=== PATIENT | male | born 1975 | race African-American/Black ===

== ENCOUNTER 2025-08-23 04:06 | Emergency (ER) | payer OTHER, SELFPAY ==
--- NOTE | ~2025-08-23 | US_ITS ---
CLINICAL HISTORY: Left Testicular Pain; Acute onset US Scrotum with Doppler Comparison: None provided Findings: Right testicle normal echotexture, 4.8 x 3.2 x 1.9 cm. Left testicle normal echotexture, 4.6 x 3.0 x 2.6 cm. Normal color flow and arterial/venous spectral tracing of both testicles. Normal epididymides. No varicoceles. No hydroceles. IMPRESSION: Normal scrotal ultrasound. No evidence of torsion. This document has been electronically signed by: Hilton Blank MD on 08/23/2025 06:41:29
--- NOTE | ~2025-08-23 | CT_ITS ---
CLINICAL HISTORY: renal infarct or blockage, left flank pain CT angiography abdomen and pelvis with contrast. 3-D post processing. Comparison: None provided Findings: Aorta, mesenteric/renal arteries, and iliofemoral systems are patent with no hemodynamically significant stenoses. The lung bases are clear. There is loss of corticomedullary distinction in the upper pole of the left kidney, possible pyelonephritis. The gallbladder and solid organs are otherwise within normal limits. No renal stones. No bowel obstruction, pneumoperitoneum, or pneumatosis. Pelvic contents unremarkable. Normal appendix. The bones are intact. IMPRESSION: Possible left pyelonephritis. Clinical follow-up recommended. This document has been electronically signed by: Hilton Blank MD on 08/23/2025 07:34:24
[2025-08-23 04:09] VITALS: BP 173/85; PULSE 80; RESP 20; TEMP 36.7; O2SAT 96; BMI 25.5
[2025-08-23 04:29] LABS: Hematocrit 42.1 % (42.0-52.0); Hemoglobin 14.2 g/dl (14.0-18.0); Imm Gran Abs Auto 0.03 X10*3/uL (0.00-0.03); Imm Gran Pct Auto 0.3 % (0.0-0.4); Lymphocytes Absolute Auto 1.2 X10*3/uL (1.2-4.9); MANUAL DIFF FLAG NO; Mean Corpuscular HGB Conc 33.7 g/dl (31.0-36.0); Mean Corpuscular Hemoglobin 27.4 pg (27.0-33.0); Mean Corpuscular Volume 81.3 fL (80.0-98.0); NRBC Abs Auto 0.000 X10*3/uL (0.0-0.012); NRBC Pct Auto 0.0 /100WBC (0.0-0.2); Platelet Count 242 X10*3/uL (160-400); Red Blood Count 5.18 X10*6/uL (4.60-5.80); White Blood Count 11.1 X10*3/uL (4.8-10.8)
--- NOTE | 2025-08-23 04:34 | PC.NURSE ---
pt reports waking up to severe testicular pain on L. He reports some nausea and vomiting once, last emesis an hour ago. spouse at bedside. denies fever. 02/23 pain.
--- OUTSIDE RECORDS SUMMARY | 2025-08-23 04:40 | XMS_ITS | Encounter Summary ---
Author Organization [facility], Address [address] [place] [address] Phone Care Team Providers Care Cardiovascular Surgical Tech Name Role Phone Jamie Granger MD Primary Care Provider [phone] Encounter Details Date Type Department Care Team (Late st Contact Info) Description 09/18/2023 Documentation Only [facility], [address] [place] [address] Brenton Holt MD [address] [place] [address] Social History Tobacco Use Types Packs/Day Years Used Date Smoking Tobacco: Never Assessed Sex and Gender Information Value Date Recorded Sex Assigned at Not on file Legal Sex Male 3:30 PM EST Gender Identity Not on file Sexual Orientation Not on file documented as of this encounter Plan of Treatment Not on file documented as of this encounter Visit Diagnoses Not on filedocumented in this encounter Care Teams Cardiovascular Surgical Tech Relationship Specialty Start Date End Date Jamie Granger MD PCP - General Physician Door Attendant 09/18/23 documented as of this encounter
--- OUTSIDE RECORDS SUMMARY | 2025-08-23 04:40 | XMS_ITS | Encounter Summary ---
Author Organization [facility], Address [address] [place] [address] Phone Care Team Providers Care Slat Basket Maker Helper Machine Name Role Phone Jamie Granger MD Primary Care Provider [phone] Encounter Details Date Type Department Care Team (Late st Contact Info) Description 12/03/2023 Documentation Only [facility], [address] [place] [address] Brenton Holt MD [address] [place] [address] Social History Tobacco Use Types [...] on filedocumented in this encounter Care Teams Slat Basket Maker Helper Machine Relationship Specialty Start Date End Date Jamie Granger MD PCP - General Physician Dispensing And Measuring Optician 09/18/23 documented as of this encounter
--- OUTSIDE RECORDS SUMMARY | 2025-08-23 04:40 | XMS_ITS | Encounter Summary ---
Author Organization [facility], Address [address] [place] [address] Phone Care Team Providers Care Motor And Controls Tester Name Role Phone Jamie Granger MD Primary Care Provider [phone] Encounter Details Date Type Department Care Team (Late st Contact Info) Description 09/18/2023 Documentation Only [facility], [address] [place] [address] Brenton Holt MD [address] [place] [address] Social History Tobacco Use Types [...] on filedocumented in this encounter Care Teams Motor And Controls Tester Relationship Specialty Start Date End Date Jamie Granger MD PCP - General Physician Brine Room Laborer 09/18/23 documented as of this encounter
--- OUTSIDE RECORDS SUMMARY | 2025-08-23 04:40 | XMS_ITS | Clinical Summary ---
Author Organization [facility], Address [address] [place] [address] [place] [address] Phone Care Team Providers Care Supply Chain Intern Name Role Phone Jamie Granger MD Primary Care Provider [phone] Allergies No known active allergies Medications amLODIPine (NORVASC) 5 MG tablet Take 5 mg by mouth 1 (one) time each day 09/04/2023 Active Eliquis 5 MG tablet Take 5 mg by mouth 1 (one) time each day 08/28/2023 Active nicotine (NICODERM CQ) 21 MG/24HR 09/03/2023 Active Active Problems No known active problems Immunizations Immunization Administration Dates Next Due Hepatitis B 12/07/2021,08/24/2002 PPD Test 06/05/2021 Pneumococcal Polysaccharide 12/07/2021 Tdap 10/20/2019 Social History Tobacco Use Types Packs/Day Years Used Date Smoking Tobacco: Never Assessed Sex and Gender Information Value Date Recorded Sex Assigned at Not on file Legal Sex Male 3:30 PM EST Gender Identity Not on file Sexual Orientation Not on file Plan of Treatment Health Maintenance Due Date Last Done Comments Hepatitis B Vaccine (1 of 3 - 19+ 3-dose series) 1995 12/07/2021, 08/24/2002 Pneumococcal Vaccine: Peds ( 0 to 5 Years) and At-Risk Patients (6 to 49 Years) (2 of 2 - PCV) 12/07/2022 12/07/2021 Influenza Vaccine (#1) 2025 Care Teams Supply Chain Intern Relationship Specialty Start Date End Date Jamie Granger MD PCP - General Physician Tobacco Feeder Catcher 09/18/23
--- OUTSIDE RECORDS SUMMARY | 2025-08-23 04:40 | XMS_ITS | Clinical Summary ---
Author Organization [address] [facility] Address [address] [place] [address] Phone Care Team Providers Care Recruitment Advertising Manager Name Role Phone Jamie Granger Primary Care Provider [phone] Allergies No known active allergies Medications nicotine (NICODERM CQ) 21 mg/[address] 1 patch on the skin 1 (one) time each day at the same time. Active amLODIPine (NORVASC) 5 mg tablet Take 1 tablet (5 mg total) by mouth 1 (one) time each day. Active bisacodyL (DULCOLAX) 5 mg EC tablet Take 2 tablets by mouth right before beginning bowel prep. See instructions provided by the office 2 tablet 5 Active polyethylene glycol (Golytely) 236-22.74-6.74 -5.86 gram solution Take 4L by mouth once for one dose. May substitue any PEG. Starting at 6PM the night before your procedure drink 1 8oz glasses at your own pace until you complete half of the gallon. Finish 2nd half of the gallon 5 hours before your procedure. 4000 mL 5 Active bisacodyL (DULCOLAX) 5 mg EC tablet Take 2 tablets by mouth right before beginning bowel prep. See instructions provided by the office 2 tablet 5 Active polyethylene glycol (Golytely) 236-22.74-6.74 -5.86 gram solution Take 4L by mouth once for one dose. May substitue any PEG. Starting at 6PM the night before your procedure drink 1 8oz glasses at your own pace until you complete half of the gallon. Finish 2nd half of the gallon 5 hours before your procedure. 4000 mL 5 Active ketoconazole (NIZORAL) 2 % cream Apply topically 1 (one) time each day. 30 g 2 5 Active Encounters Date Type Department Care Team Description 06/02/2025 3:00 PM EDT Consult Orthopedic Surgery - [place] [address] [id number] Evan Kong, DPM Dermatophytosis of nail (Primary Dx); Tinea pedis of both feet; Long toenail from Last 3 Months Social History Tobacco Use Types Packs/Day Years Used Date Smoking Tobacco: Never Assessed Sex and Gender Information Value Date Recorded Sex Assigned at Not on file Legal Sex Male 12:08 AM EST Gender Identity Not on file Sexual Orientation Not on file Plan of Treatment Health Maintenance Due Date Last Done Comments Colorectal Cancer Screening: Colonoscopy 1976 HIV Screening 08/04/2024 Social Influencers of Health Screening 08/04/2024 Depression Screening 09/16/2024 COVID-19 Vaccine (3 - 2024-2 6 season) 2025 04/12/2021, 03/14/2021 Influenza Vaccine (#1) 2025 07/22/2024 Cholesterol Screening (Lipid Panel) 12/08/2026 12/08/2021, 12/08/2021, 10/19/2019 DTaP,Tdap,and Td Vaccines (2 - Td or Tdap) 10/20/2029 10/20/2019 RSV Immunization Adult Patients (1 - 1-dose 75+ series) 2051 Pneumococcal Vaccine: Pediatrics (0 to 5 Years) and At-Risk Patients (6 to 49 Years) Aged Out 12/07/2021 No longer eligible b ased on patient's age to complete this topic Hepatitis C Screening Completed 12/08/2021 Hepatitis B Vaccines Completed 03/03/2025, 12/07/2021, 08/24/2002 HIB Vaccines Aged Out No longer eligi ble based on patient's age to complete this topic HPV Vaccines Aged Out No longer eligi ble based on patient's age to complete this topic Hepatitis A Vaccines Aged Out No long er eligible based on patient's age to complete this topic IPV Vaccines Aged Out No longer eligi ble based on patient's age to complete this topic MMR Vaccines Aged Out No longer eligi ble based on patient's age to complete this topic Meningococcal ACWY Vaccine Aged Out N o longer eligible based on patient's age to complete this topic Meningococcal B Vaccine Aged Out No l onger eligible based on patient's age to complete this topic RSV Immunization Patients Under 20 months Aged Out No longer eligible b ased on patient's age to complete this topic Varicella Vaccines Aged Out No longer eligible based on patient's age to complete this topic [place] [address] [place] [address] PLAN Care Teams Recruitment Advertising Manager Relationship Specialty Start Date End Date Jamie Granger PA [address] [place] [id number] PCP - General Physician Biometrics Experimentalist 08/04/24
--- OUTSIDE RECORDS SUMMARY | 2025-08-23 04:40 | XMS_ITS | Encounter Summary ---
Author Organization [facility], Address [address] [place] [address] Phone Care Team Providers Care Canopy Inspector Name Role Phone Jamie Granger MD Primary Care Provider [phone] Encounter Details Date Type Department Care Team (Late st Contact Info) Description 09/18/2023 Documentation Only [facility], [address] [place] [address] Brenton Holt MD [address] [place] [address] Social History Tobacco Use Types [...] on filedocumented in this encounter Care Teams Canopy Inspector Relationship Specialty Start Date End Date Jamie Granger MD PCP - General Physician Cook Mayonnaise 09/18/23 documented as of this encounter
--- OUTSIDE RECORDS SUMMARY | 2025-08-23 04:40 | XMS_ITS | Encounter Summary ---
Author Organization [facility], Address [address] [place] [address] Phone Care Team Providers Care Center Medical Specialist Name Role Phone Jamie Granger MD Primary Care Provider [phone] Encounter Details Date Type Department Care Team (Late st Contact Info) Description 09/18/2023 Documentation Only [facility], [address] [place] [address] Brenton Holt MD [address] [place] [address] Social History Tobacco Use Types [...] on filedocumented in this encounter Care Teams Center Medical Specialist Relationship Specialty Start Date End Date Jamie Granger MD PCP - General Physician Melter Operator 09/18/23 documented as of this encounter
--- OUTSIDE RECORDS SUMMARY | 2025-08-23 04:40 | XMS_ITS | Encounter Summary ---
Author Organization [facility], Address [address] [place] [address] Phone Care Team Providers Care Hot Iron Worker Name Role Phone Jamie Granger MD Primary Care Provider [phone] Encounter Details Date Type Department Care Team (Late st Contact Info) Description 09/18/2023 Documentation Only [facility], [address] [place] [address] Brenton Holt MD [address] [place] [address] Social History Tobacco Use Types [...] on filedocumented in this encounter Care Teams Hot Iron Worker Relationship Specialty Start Date End Date Jamie Granger MD PCP - General Physician Applied Psychology Teacher 09/18/23 documented as of this encounter
[2025-08-23 04:51] LABS: Alanine Aminotransferase 15 U/L (0-40); Albumin Level 4.6 g/dL (3.5-5.0); Alkaline Phosphatase 75 U/L (39-117); Anion Gap 14 (12-20); Aspartate Amino Transferase 23 U/L (5-37); Blood Urea Nitrogen 20 mg/dL (9-16); Calcium 9.2 mg/dL (8.4-10.2); Carbon Dioxide 24 mmol/L (22-29); Chloride 107 mmol/L (96-108); Creatinine Clr Calc Pharmacy 65.6; Estimated Glomerular Filt Rate 50; Lipase 22 U/L (8-78); Potassium 4.2 mmol/L (3.3-5.1); Sodium 141 mmol/L (135-145); Total Protein 7.1 g/dL (6.5-8.0)
[2025-08-23 05:39] LABS: Resp Syncy Virus RNA Qual PCR NEGATIVE (Negative); SARS COV2 PCR INHOUSE NEGATIVE (Negative)
--- NOTE | 2025-08-23 06:25 | ED.MALEGU ---
HPI - Male Genitourinary General Chief complaint: Urogenital-Male Stated complaint: General Medical Time Seen by Provider: 08/23/25 06:25 Source: patient Mode of arrival: ambulatory Limitations: no limitations History of Present Illness ED Provider: Dr. 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 It started all of a sudden last night. Patient is endorsing nausea and vomiting with this. Denies any dysuria or hematuria. Related Data Previous Rx's ?Medication ?Instructions ?Recorded amoxicillin 875 mg-potassium 1 tab PO Q12H 7 days #14 tabs 08/23/25 clavulanate 125 mg tablet ondansetron 4 mg disintegrating 4 mg PO Q8H PRN nausea and 08/23/25 tablet vomiting #14 tabs oxycodone 5 mg tablet 5 mg PO Q8H PRN pain #14 tabs 08/23/25 Allergies Allergy/AdvReac Type Severity Reaction Status Date / Time No Known Allergies Allergy Verified 08/23/25 04:14 Review of Systems Review of Systems: Pertinent review of systems as mentioned in [facility]. All other system otherwise negative. [facility] Past Medical History [facility] Narrative: Medical history as mentioned in [facility] Social History Social History Advance Directives: No Advance Directives Information Provided: No Physical Exam Exam: Exam: General: Pleasant, no distress, interacting appropriately Head: Normacephalic, atraumatic ENT: oral mucosa moist, neck supple, no tracheal deviation Cardiovascular: regular rate, regular rhythm, no murmurs, rubbing, gallops Respiratory: CTAB, no wheeze, rales, rhonchi Gastrointestinal: Soft, non distended, left lower quadrant tenderness, infraumbilical tenderness on palpation, left flank pain. : No obvious sign of incarcerated hernia no hernia palpated on the inguinal canal on the left side on exam. No signs of penile lesion on exam Neurological: Awake and alert, no facial droop noted Skin: Warm and dry Psychiatric: Appropriate mood and thoughts Vital Signs: Vital Signs: Last Vital Signs Temp 98.9 F 08/23/25 08:07 Pulse 68 08/23/25 08:07 Resp 16 08/23/25 08:07 BP 167/93 H 08/23/25 08:07 Pulse Ox 95 08/23/25 08:07 O2 Del Method Room Air 08/23/25 08:07 BMI result Body Mass Index 25.5 Medications Administered Discontinued Medications Generic Name Dose Route Start Last Admin Trade Name Diana PRN Reason Stop Dose Admin Hydromorphone HCl 0.5 mg 08/23/25 06:30 08/23/25 06:34 Hydromorphone Hcl 0.5 Mg/0.5 Ml Syringe IVPUSH 08/23/25 06:31 0.5 mg ONCE ONE Administration Protocol Sodium Chloride 1,000 mls @ 999 mls/hr 08/23/25 06:30 08/23/25 08:37 Ns IV 08/23/25 07:30 Infused .Q1H1M SHYLA Infusion Iohexol 80 ml 08/23/25 06:55 08/23/25 06:56 Iohexol 350 Mg/Ml 100 Ml Infus..Btl IV 08/23/25 06:56 80 ml ONCE ONE Administration Ondansetron HCl 4 mg 08/23/25 06:30 08/23/25 06:34 Ondansetron Hcl 4 Mg/2 Ml Vial IVPUSH 08/23/25 06:31 4 mg ONCE ONE Administration Medical Decision Making Medical Decision Making MDM Narrative: 49-year-old male presented hospital today for sudden onset of left flank pain, radiates down to the left lower quadrant area. Also endorsing some nausea and vomiting as well. This is may be nephrolithiasis or recurrence of his renal infarct. Scrotal ultrasound was ordered prior to my evaluation. Abdominal lab work were ordered as well. Given history of renal infarct. We will obtain a CTA of the abdomen and pelvis. Patient does have slight leukocytosis at 11.1, patient does have slight elevation creatinine 1.51. Respiratory swab is negative for COVID flu and RSV. Lipase is normal. IV Dilaudid, IV Zofran IV fluid will be given to the patient for the symptom control. CT imaging shows possible left pyelonephritis. UA did not show any signs of infection. Patient does have a slight bump in creatinine of 1.51. No clear source of infection of the kidney. No sign of blockage in the arterial system. No signs of aortic dissection. At this time patient's pain has improved. We will plan to discharge patient. The patient's still have some left lower quadrant pain. There was no mentioned of diverticulitis on imaging. We will plan to give patient is Augmentin for coverage of possible diverticulitis. Oxycodone and Zofran will be prescribed for symptom control. Encouraged him to follow up with the data processing control clerk for repeat kidney function testing. Patient's agrees and understands this plan all questions were addressed. Differential Diagnosis Differential Diagnoses: The differential diagnosis associated with the presentation includes Nephrolithiasis, nausea vomiting, renal infarct, UTI, small-bowel obstruction Lab Data MDM Lab Attestation statement: I reviewed the patient's lab results. 08/23/25 04:21 08/23/25 04:21 Labs: Lab Results 08/23/25 08/23/25 Range/Units 04:21 08:06 WBC 11.1 H (4.8-10.8) X10*3/uL RBC 5.18 (4.60-5.80) X10*6/uL Hgb 14.2 (14.0-18.0) g/dl Hct 42.1 (42.0-52.0) % MCV 81.3 (80.0-98.0) fL MCH 27.4 (27.0-33.0) pg MCHC 33.7 (31.0-36.0) g/dl RDW 14.0 (11.0-16.0) % Plt Count 242 (160-400) X10*3/uL MPV 8.6 L (9.4-12.4) fL Immature Gran % (Auto) 0.3 (0.0-0.4) % Neut % (Auto) 83.9 H (45-73) % Lymph % (Auto) 10.5 L (20-40) % Harmon % (Auto) 4.7 (2-11) % Eos % (Auto) 0.1 (0-4) % Baso % (Auto) 0.5 (0-2) % Lymph # (Auto) 1.2 (1.2-4.9) X10*3/uL Harmon # (Auto) 0.5 (0.1-1.2) X10*3/uL Eos # (Auto) 0.0 (0.0-0.4) X10*3/uL Baso # (Auto) 0.1 (0.0-0.2) X10*3/uL Abs Immat Gran (auto) 0.03 (0.00-0.03) X10*3/uL Absolute Neuts (auto) 9.3 H (2.0-8.3) x10*3/uL Absolute Nucleated RBC 0.000 (0.0-0.012) X10*3/uL Nucleated RBC % (auto) 0.0 (0.0-0.2) /100WBC Hold Blue Top SEE NOTE Sodium 141 (135-145) mmol/L Potassium 4.2 (3.3-5.1) mmol/L Chloride 107 (96-108) mmol/L Carbon Dioxide 24 (22-29) mmol/L Anion Gap 14 (12-20) BUN 20 H (9-16) mg/dL Creatinine 1.51 H (0.5-1.4) mg/dL Estim Creat Clear Calc 65.6 Estimated GFR 50 Random Glucose 99 (60-115) mg/dL Calcium 9.2 (8.4-10.2) mg/dL Total Bilirubin 0.6 (0.0-1.0) mg/dL AST 23 (5-37) U/L ALT 15 (0-40) U/L Alkaline Phosphatase 75 (39-117) U/L Total Protein 7.1 (6.5-8.0) g/dL Albumin 4.6 (3.5-5.0) g/dL Lipase 22 (8-78) U/L Urine Color Yellow Urine Appearance Clear Urine pH >= 9.0 (5.0-9.0) Ur Specific [place] >= 1.030 H (1.005-1.025) Urine Protein 30 (1+) H (Neg-Trace) mg/dL Urine Glucose (UA) Negative (Negative) mg/dL Urine Ketones Negative (Negative) mg/dL Urine Blood Negative (Negative) Urine Nitrite Negative (Negative) Ur Leukocyte Esterase Negative (Negative) Urine RBC 0-2 (0-2) /HPF Urine WBC 0-5 (0-5) /HPF Ur Squamous Epith Cells 0-2 (0-2) /HPF Urine Bacteria None Seen (None Seen) Hyaline Casts 0-2 (0-2) /LPF Influenza Type A (PCR) NEGATIVE (Negative) Influenza Type B (PCR) NEGATIVE (Negative) RSV RNA Qual (PCR) NEGATIVE (Negative) SARS-CoV-2 RNA (RT-PCR) NEGATIVE (Negative) Independent Interpretation I performed an independent interpretation of an: CT Scan Radiology Impression Discussion of test interpretation with radiology: I have reviewed the radiologist's reading. Prescription Management I considered prescription management with: Pain Medication and Antibiotic Discharge Plan Discharge Clinical Impression: Acute left flank pain Patient Disposition: Home, Self-Care Instructions: Flank Pain (ED) Additional Instructions: Follow up with the data processing control clerk Doctor. CT imaging shows swelling of the left kidney however the urinalysis did not show any signs of infection. There is no signs of blockage inthe blood vessels. I am unsure of what is causing this swelling of left kidney. Take tylenol 1000mg every 8 hours. Ask for repeat kidney labwork to trend kidney function. Cr. here today is 1.51 which is slightly more elevated than normal. Prescriptions: New ondansetron 4 mg tablet,disintegrating 4 mg PO Q8H PRN (Reason: nausea and vomiting) Qty: 14 0RF oxycodone 5 mg tablet 5 mg PO Q8H PRN (Reason: pain) Qty: 14 0RF Rx Instructions: Partial Fill upon patient request. amoxicillin-pot clavulanate 875-125 mg tablet 1 tab PO Q12H 7 Days Qty: 14 0RF Print Language: Kinyarwanda
--- NOTE | 2025-08-23 06:28 | PC.NURSE ---
pt taken for ultrasound, when back in his room he began to throw up. provider at bedside.
--- NOTE | 2025-08-23 06:37 | PC.NURSE ---
pt medicated per MAR.
[2025-08-23] MEDS: iohexoL 350 MG/ML 100 ML INFUS..BTL 80 ML IV (06:56)
--- NOTE | 2025-08-23 07:22 | PC.NURSE ---
this rn resumed care at 0700, pt is currently sleeping in bed after receiving nausea and pain medications by previous shift. Awaiting CT results at this time, call thrasher within reach, significant other remains at bedside.
[2025-08-23 08:07] VITALS: BP 167/93; PULSE 68; RESP 16; TEMP 37.2; O2SAT 95
[2025-08-23 08:17] LABS: Appearance Urine Clear; Glucose Urine UA Negative (Negative); PH >= 9.0 (5.0-9.0); Specific Gravity - Urine >= 1.030 (1.005-1.025); UMIC TRIGGER UACC YES
[2025-08-23] MEDS: oxyCODONE HCl Immed Release 5 MG TABLET PO (09:02)
[2025-08-23 09:34] VITALS: BP 167/93; PULSE 68; RESP 16; TEMP 37.2; O2SAT 95
== END 2025-08-23 09:35 | disposition home or self-care (01) ==
PROVIDERS: Emergency Provider Student in an Organized Health Care Education/Training Program
DX: R10.A2 Flank pain, left side (principal); N50.812 Left testicular pain; R11.2 Nausea with vomiting, unspecified; Z03.818 Encounter for observation for suspected exposure to other biological agents ruled out
CPT/HCPCS: 74174; 76870; 80053; 81001; 83690; 85025; 87637; 93975; 96361; 96374; 96375; 99285; J1171; J2405; Q9967

== ENCOUNTER → 2025-08-23 05:45 | Outpatient (BNV) | payer OTHER, SELFPAY | PROVIDERS: Emergency Provider Student in an Organized Health Care Education/Training Program; Visit Provider Specialist | DX: R10.A2 Flank pain, left side (principal); N50.812 Left testicular pain | CPT/HCPCS: 74174; 76870 ==